=== PATIENT | female | born 1980 | race Caucasian/White ===

== ENCOUNTER 2017-01-13 16:55 | Inpatient (IN) | payer BC ==
[2017-01-13] MEDS ORDERED: Nalbuphine 20 MG/1 ML Amp IVPUSH PRN (17:10)
[2017-01-13] MEDS ORDERED: Sodium Chloride 0.9% 10 ML Syringe FLUSH PRN (17:10)
[2017-01-13] MEDS ORDERED: Lidocaine 1% 50 ML MDV INJECT ONE (17:10)
[2017-01-13] MEDS ORDERED: Ampicillin 2 GM in Sodium Chloride 0.9% 100 ML IV ONE (17:10)
[2017-01-13] MEDS ORDERED: Ondansetron 4 MG/2 ML SDV IVPUSH PRN (17:10)
[2017-01-13] MEDS: Lactated Ringers 1,000 ML IV SCH ×3 (17:15→19:26)
[2017-01-13] MEDS ORDERED: Ampicillin 1 GM Vial ONE ×2 (17:29→17:33)
[2017-01-13] MEDS ORDERED: Sodium Chloride 0.9% 200 ML ONE (17:29)
--- NOTE | 2017-01-13 17:33 | PCM.LDHP ---
L&D History of Present Illness - General Date of Service: 01/13/17 Admit Problem/Dx: Patient Status Order with Admit Dx/Problem 01/13/17 17:11 Patient Status [ADT] Routine Admission Diagnosis/Problem Admission Diagnosis/Problem Normal 01/13/17 17:22 40-1/7 week intrauterine , active labor, progression of cervical dilation Source of Information: Patient History Limitations: Reports: No Limitations - History of Present Illness Introduction:: Juliet is a 36-year-old 3 para 2002 white female is admitted on the afternoon of 01/13/2017 in active labor. She has changed her cervix from 2 cm, 80 % effaced, soft, -3 and mid position to 5 cm, her percent effaced, bulging bag of almaguer, anterior, very soft, vertex presentation. She is alexys approximately every 3 minutes. She is uncomfortable and desiring epidural. 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 Patient is a 3 para 2001. Patient had an unknown last menstrual period and was dated with an ultrasound done early in the . Follow-up ultrasounds done on 07/12/2016, 08/27/2016 and 12/12/2016 all agreed with the initial ultrasound. Her course is been relatively unremarkable. She declined genetic testing. Her [place] depression screen on 09/12/2016 was 2 on a scale 30. Urine culture showed positive group B strep. She is O- and had RhoGAM administered on 10/12/2016. He initially had retention of urine early in the but this resolved as the uterus enlarged. It was felt to be due to an incarcerated uterus. She plans to nurse. She is accepting of an epidural in labor and delivery. Past obstetric history includes 2 vaginal deliveries: 1. 7 lbs. 3 oz. male infant born [birth year]2009 at 40 weeks gestational age after 24 hours of labor. She delivered and hitting her [place]. Child's name is Adela. Baby had paralysis of vocal cords-possibly genetic in origin 2. Female born 01/29/2013 at 40 weeks gestational age after 10 hours of labor. Vacuum extraction delivery done at [facility]. Child's name is Gabrielle. course: Patient was initially seen at 13-5/7 weeks. Ultrasound done early in the showed an ZOYA of 01/12/2017. She was seen on a regular basis. Weight gain was from first visit weight of 151-172.2 pounds for 21.2 pound weight gain. Her blood pressure was normal throughout the and her fundal height growth was appropriate. labs: Blood is O- with a negative antibody screen. Her first hemoglobin was 13.7. Platelets were 266,000 at that time. She is rubella immune. RPR is nonreactive. Initial urine culture was positive for group B strep. Hepatitis B surface antigen and HIV assays were both negative. Chlamydia and gonorrhea assays were both negative. Her second trimester labs included a hemoglobin which is normal at 12.5 g/dL and a platelet count of 223,000. Diabetic screening test was 86. She received Rh immunoglobulin on 10/12/2016. Allergies none Medications: 1. vitamins 1 daily 2. Calcium 500 mg tablets daily Past medical history: 1. Vaginal delivery 2 2. heart and lung infection after last delivery. Past surgical history: Finger surgery in 1996 Family history: Patient's father and sister have factor V Leiden mutation. Mother the baby was tested and is negative. No bleeding, blood clotting, anesthesia or asthma problems noted in the family. 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 is Lalo. She does not use any significant muscle alcohol, drugs or tobacco. Review of systems: Constitutional: Normal Skin: Negative Cardiovascular: No chest pain or exercise intolerance Lungs: No shortness of breath or infectious symptoms Breasts: Changes associated with only GI: No concerns : Changes associated with including increased fundal height Musculoskeletal: Minimal edema on occasion in the bilateral lower extremities Neurological: Negative Physical exam: In general patient is well-developed, well-nourished, pleasant female stated age in no acute distress. Vital signs normal on last evaluation clinic 01/09/2017 with blood pressure 106/ 58. Weight was 172.2 pounds. heart rate was 124. Weight at time of first visit was 151. Height is 5 feet 8 inches. Pre BMI was 22. Skin is warm dry without lesions. HEENT, neck and back within normal limits Lungs are clear with good breath sounds in all lung de jesus. Cardiovascular exam shows regular rate and rhythm without murmurs. Breasts are not evaluated having been evaluated at first visit was found to be normal. Abdomen is protuberant secondary to with fundal height of 39 cm. Baby in vertex presentation by Xavier maneuvers. Cervix is dilated 5 cm, 100% effaced, -2 station, very soft, bulging bag of almaguer, anterior. Baby is in a vertex presentation Extremities neurological exam are grossly within normal limits. - Related Data Allergies/Adverse Reactions: Allergies Allergy/AdvReac Type Severity Reaction Status Date / Time No Known Allergies Allergy Verified 07/11/16 05:57 Home Medications: Home Meds Vit No.130/Iron/FA [ Vitamins] 1 each PO DAILY 02/01/15 [ History] Docusate Sodium [Colace] 50 mg PO BID PRN 02/09/15 [History] Ibuprofen 400 mg PO Q6HR PRN 02/09/15 [History] Acetaminophen [Tylenol] 650 mg PO Q6H PRN #0 tablet 02/10/15 [Rx] Acetaminophen/oxyCODONE [Percocet 325-5 MG] 2 tab PO Q6H PRN #0 tablet 02/10/15 [Rx] Azithromycin [Zithromax] 500 mg IV Q24H adv 02/10/15 [Rx] Cefepime [Maxipime in D5W 2 GM/50 ML] 2 gm IV Q8H bag 02/10/15 [Rx] Enoxaparin [Lovenox] 40 mg SUBCUT DAILY syringe 02/10/15 [Rx] Past Medical History - Past Health History Medical/Surgical History: Denies Medical/Surgical History 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: Reports: Other OB/BYN History: x2 - Past Surgical History Musculoskeletal Surgical History: Reports: Other (See Below) Social & Family History - Family History Family Medical History: Noncontributory - Tobacco Use Smoking Status *Q: Never Smoker Second Hand Smoke Exposure: No - Recreational Drug Use Recreational Drug Use: No - Living Situation & Occupation Living situation: Reports: , with Spouse, with Family Occupation: Unemployed H&P Review of Systems - Review of Systems: Review Of Systems: See Below L&D Exam - Exam Exam: See Below - Vital Signs Weight: 65.771 kg Problem List Initiated/Reviewed/Updated: Yes Orders Last 24hrs: Active Orders 24 hr Category Date Time Status Patient Status [ADT] Routine ADT 01/13/17 17:11 Ordered Activity as Tolerated [RC] PFP Care 01/13/17 17:10 Ordered Communication Order [RC] ASDIRECTED Care 01/13/17 17:10 Ordered Heart Tones [RC] ASDIRECTED Care 01/13/17 17:11 Ordered Notify Provider [RC] PFP Care 01/13/17 17:10 Ordered Notify Provider [RC] PRN Care 01/13/17 17:10 Ordered Peripheral IV Care [RC] . DIRECTED Care 01/13/17 17:11 Ordered Pump Management, Intrathecal [RC] ASDIRECTED Care 01/13/17 17:12 Ordered Vital Signs [RC] PER UNIT ROUTINE Care 01/13/17 17:10 Ordered Regular Diet [DIET] Diet 01/13/17 Dinner Ordered CBC WITH AUTO DIFF [HEME] Stat Lab 01/13/17 17:10 Ordered Ampicillin 1 gm Med 01/13/17 17:15 Ordered Sodium Chloride 0.9% [Normal Saline] 100 ml IV Q4H Ampicillin 2 gm Med 01/13/17 17:10 Ordered Sodium Chloride 0.9% [Normal Saline] 100 ml IV ONETIME Lactated Ringers [Ringers, Lactated] 1,000 ml Med 01/13/17 17:15 Ordered IV ASDIRECTED Lidocaine 1% [Xylocaine 1%] Med 01/13/17 17:10 Once 10 ml INJECT ONETIME ONE Nalbuphine [Nubain] Med 01/13/17 17:10 Ordered 10 mg IVPUSH Q2H PRN Ondansetron [Zofran] Med 01/13/17 17:10 Ordered 4 mg IVPUSH Q4H PRN Sodium Chloride 0.9% [Saline Flush] Med 01/13/17 17:10 Ordered 10 ml FLUSH ASDIRECTED PRN Electronic Heart Tones Ext w TOCO [WOMSER] Oth 01/13/17 17:10 Ordered Routine Electronic Heart Tones Internal [WOMSER] Per Unit Oth 01/13/17 17:10 Ordered Routine Peripheral IV Insertion Adult [OM.PC] Routine Oth 01/13/17 17:10 Ordered Resuscitation Status Routine Resus Stat 01/13/17 17:10 Ordered Medication Orders Ampicillin Sodium 2 gm/ Sodium (Chloride) 100 mls @ 200 mls/hr IV ONETIME ONE Stop: 01/13/17 17:39 Ampicillin Sodium 1 gm/ Sodium (Chloride) 100 mls @ 200 mls/hr IV Q4H THEA Lactated Ringer's (Ringers, Lactated) 1,000 mls @ 100 mls/hr IV ASDIRECTED [facility] Lidocaine HCl (Xylocaine 1%) 10 ml INJECT ONETIME ONE Stop: 01/13/17 17:11 Nalbuphine HCl (Nubain) 10 mg IVPUSH Q2H PRN PRN Reason: Pain (moderate 4-6) Ondansetron HCl (Zofran) 4 mg IVPUSH Q4H PRN PRN Reason: Nausea/Vomiting Sodium Chloride (Saline Flush) 10 ml FLUSH ASDIRECTED PRN PRN Reason: Keep Vein Open Assessment/Plan Comment:: Assessment: 1. 40-7 week intrauterine , active labor, advanced cervical dilation 2. Reassuring heart tones 3. Group B strep positive on initial urine culture -candidate for at biotic prophylaxis with ampicillin 4. Patient plans to nurse 5. Patient is accepting of epidural for analgesia in labor 6. O- blood, we will evaluate her blood to see whether she is an Rh immunoglobulin candidate 7. History of bilateral vocal cord paralysis and first baby-cerner noted thus far during this with this child. plan: 1. in the normal spontaneous vaginal delivery 2. epidural when necessary 3. cbc 4. ampicillin prophylaxis in labor for group b strep positive status
[2017-01-13] MEDS ORDERED: Sodium Chloride 0.9% 100 ML ONE (17:36)
[2017-01-13] MEDS ORDERED: diphenhydrAMINE 50 MG/ML SDV IVPUSH PRN (17:59)
[2017-01-13] MEDS ORDERED: ePHEDrine 50 MG/ML SDV IVPUSH PRN (17:59)
[2017-01-13] MEDS ORDERED: fentaNYL 100 MCG/2 ML SDV EPIDUR PRN (17:59)
[2017-01-13] MEDS ORDERED: Bupivacaine/fentaNYL/NS 100 ML Bag EPIDUR SCH (18:00)
--- NOTE | 2017-01-13 18:20 | PCM.PREANE ---
Preanesthetic Assessment - Anesthesia/Transfusion/Family Hx Anesthesia History: Prior Anesthesia Without Reaction Family History of Anesthesia Reaction: No Transfusion History: No Prior Transfusion(s) - Review of Systems General: No Symptoms Pulmonary: No Symptoms Cardiovascular: No Symptoms Gastrointestinal: No Symptoms Neurological: No Symptoms Other: Reports: None - Physical Assessment Pulse: 84 O2 Sat by Pulse Oximetry: 95 Respiratory Rate: 18 Blood Pressure: 103/64 Temperature: 36.6 C Height: 1.73 m Weight: 65.771 kg ASA Class: 2 Mental Status: Alert & Oriented x3 Airway Class: Mallampati = 1 Dentition: Reports: Normal Dentition Thyro-Mental Finger Breadths: 3 Mouth Opening Finger Breadths: 3 ROM/Head Extension: Full Lungs: Clear to Auscultation, Normal Respiratory Effort Cardiovascular: Regular Rate, Regular Rhythm - Lab Values: Laboratory Last Values WBC 10.77 K/mm3 (3.98-10.04) H 01/13/17 17:25 RBC 4.23 M/mm3 (3.98-5.22) 01/13/17 17:25 Hgb 13.3 gm/L (11.2-15.7) 01/13/17 17:25 Hct 38.3 % (34.1-44.9) 01/13/17 17:25 MCV 90.5 fl (79.4-94.8) 01/13/17 17:25 MCH 31.4 pg (25.6-32.2) 01/13/17 17:25 MCHC 34.7 g/dl (32.2-35.5) 01/13/17 17:25 RDW Std Deviation 43.7 fL (36.4-46.3) 01/13/17 17:25 Plt Count 225 K/mm3 (182-369) 01/13/17 17:25 MPV 9.8 fl (9.4-12.3) 01/13/17 17:25 Neut % (Auto) 77.5 % (34.0-71.1) H 01/13/17 17:25 Lymph % (Auto) 10.4 % (19.3-51.7) L 01/13/17 17:25 [place] % (Auto) 11.0 % (4.7-12.5) 01/13/17 17:25 Eos % (Auto) 0.5 (0.7-5.8) L 01/13/17 17:25 Baso % (Auto) 0.1 % (0.1-1.2) 01/13/17 17:25 Neut # (Auto) 8.36 K/mm3 (1.56-6.13) H 01/13/17 17:25 Lymph # (Auto) 1.12 K/mm3 (1.18-3.74) L 01/13/17 17:25 [place] # (Auto) 1.18 K/mm3 (0.24-0.36) H 01/13/17 17:25 Eos # (Auto) 0.05 K/mm3 (0.04-0.36) 01/13/17 17:25 Baso # (Auto) 0.01 K/mm3 (0.01-0.08) 01/13/17 17:25 - Allergies Allergies/Adverse Reactions: Allergies Allergy/AdvReac Type Severity Reaction Status Date / Time No Known Allergies Allergy Verified 07/11/16 05:57 - Anesthesia Plan Pre-Op Medication Ordered: None - Acknowledgements Anesthesia Type Planned: Epidural Pt an Appropriate Candidate for the Planned Anesthesia: Yes Alternatives and Risks of Anesthesia Discussed w Pt/Guardian: Yes Pt/Guardian Understands and Agrees with Anesthesia Plan: Yes PreAnesthesia Questionnaire - Past Health History Medical/Surgical History: Denies Medical/Surgical History Gastrointestinal History: Reports: [employer] History: Reports: Other OB/BYN History: x2 - Past Surgical History Musculoskeletal Surgical History: Reports: Other (See Below) - SUBSTANCE USE Smoking Status *Q: Never Smoker Second Hand Smoke Exposure: No Recreational Drug Use History: No - HOME MEDS Home Medications: Home Meds Vit No.130/Iron/FA [ Vitamins] 1 each PO DAILY 02/01/15 [ History] Docusate Sodium [Colace] 50 mg PO BID PRN 02/09/15 [History] Ibuprofen 400 mg PO Q6HR PRN 02/09/15 [History] Acetaminophen [Tylenol] 650 mg PO Q6H PRN #0 tablet 02/10/15 [Rx] Acetaminophen/oxyCODONE [Percocet 325-5 MG] 2 tab PO Q6H PRN #0 tablet 02/10/15 [Rx] Azithromycin [Zithromax] 500 mg IV Q24H adv 02/10/15 [Rx] Cefepime [Maxipime in D5W 2 GM/50 ML] 2 gm IV Q8H bag 02/10/15 [Rx] Enoxaparin [Lovenox] 40 mg SUBCUT DAILY syringe 02/10/15 [Rx] - CURRENT (IN HOUSE) MEDS Current Meds: Current Medications Diphenhydramine HCl (Benadryl) 25 mg IVPUSH Q6H PRN PRN Reason: Itching Ephedrine Sulfate (Ephedrine Sulfate) 5 mg IVPUSH ASDIRECTED PRN PRN Reason: HYPOTENTSION Fentanyl (Sublimaze) 100 mcg EPIDUR Q3H PRN PRN Reason: PAIN Last Admin: 01/13/17 18:07 Dose: 100 mcg Fentanyl/Bupivacaine HCl (Fentanyl/Bupivacaine/Ns 2 Mcg-0.125% 100 Ml) 100 ml EPIDUR ASDIRECTED THEA Last Admin: 01/13/17 18:07 Dose: 100 ml Ampicillin Sodium 1 gm/ Sodium (Chloride) 100 mls @ 200 mls/hr IV Q4H [facility] Lactated Ringer's (Ringers, Lactated) 1,000 mls @ 100 mls/hr IV ASDIRECTED [facility] Last Admin: 01/13/17 17:53 Dose: 125 mls/hr Nalbuphine HCl (Nubain) 10 mg IVPUSH Q2H PRN PRN Reason: Pain (moderate 4-6) Ondansetron HCl (Zofran) 4 mg IVPUSH Q4H PRN PRN Reason: Nausea/Vomiting Sodium Chloride (Saline Flush) 10 ml FLUSH ASDIRECTED PRN PRN Reason: Keep Vein Open Discontinued Medications Ampicillin Sodium (Ampicillin) Confirm Administered Dose 2 gm .ROUTE .STK-MED ONE Stop: 01/13/17 17:30 Last Admin: 01/13/17 17:46 Dose: 2 gm Ampicillin Sodium (Ampicillin) Confirm Administered Dose 2 gm .ROUTE .STK-MED ONE Stop: 01/13/17 17:34 Last Admin: 01/13/17 17:52 Dose: Not Given Ampicillin Sodium 2 gm/ Sodium (Chloride) 100 mls @ 200 mls/hr IV ONETIME ONE Stop: 01/13/17 17:39 Last Admin: 01/13/17 17:48 Dose: Not Given Sodium Chloride (Normal Saline) Confirm Administered Dose 200 mls @ as directed .ROUTE .STK-MED ONE Stop: 01/13/17 17:30 Last Admin: 01/13/17 17:49 Dose: Not Given Sodium Chloride (Normal Saline) Confirm Administered Dose 100 mls @ as directed .ROUTE .STK-MED ONE Stop: 01/13/17 17:37 Last Admin: 01/13/17 17:48 Dose: 100 ml Lidocaine HCl (Xylocaine 1%) 10 ml INJECT ONETIME ONE Stop: 01/13/17 17:11
[2017-01-13] MEDS ORDERED: Oxytocin/Lactated Ringers 10 UNIT/1,000 ML BAG IV ONE (20:03)
[2017-01-13] MEDS ORDERED: Oxytocin/Lactated Ringers 10 UNIT/1,000 ML BAG IV SCH (20:15)
--- NOTE | 2017-01-13 20:32 | PCM.SN ---
- Free Text/Narrative Note: Juliet is a 36-year-old 3 now para 3003 white female who was admitted earlier today in active labor. She progressed relatively rapidly from 4 cm to complete. The course of 2 contractions the patient delivered the baby at 2002 hours. The Baby weighed 3480 g (7 pounds 10.8 ounces) and delivered in the left occiput anterior position, over an intact perineum. There was however a periclitoral laceration with the venous bleeder that required a single figure-of -eight 3-0 Monocryl suture for hemostasis. the baby was placed on mom's abdomen. Nose and mouth were bulb suctioned. Cord was clamped 2 cut by the father. The cord was obtained. The umbilical cord had 3 vessels. Baby was 19.5 inches in length and had a 14 inch head. The placenta delivered at 2010 hrs. It appeared intact and complete. It was discarded per patient desire. Estimated blood loss was 100 mL. Patient plans to nurse. Condition: Good
[2017-01-13] MEDS ORDERED: Witch Hazel Medicated Pads 100/Jar TOP PRN (20:50)
[2017-01-13] MEDS ORDERED: Acetaminophen 325 MG Tab PO PRN (20:50)
[2017-01-13] MEDS ORDERED: Benzocaine/Menthol 20%-0.5% Spray 56 GM Canister TOP PRN (20:50)
[2017-01-13] MEDS ORDERED: Lanolin 100% Cream 7 GM Tube TOP PRN (20:50)
[2017-01-13] MEDS ORDERED: Ampicillin 1 GM in Sodium Chloride 0.9% 100 ML IV SCH (21:00)
[2017-01-14] MEDS: Ibuprofen 600 MG Tab PO PRN ×5 (02:03→21:24)
[2017-01-14] MEDS: Docusate Sodium 100 MG Cap PO PRN ×2 (06:48→22:10)
--- NOTE | 2017-01-14 07:46 | PCM48HPAN ---
Post Anesthesia Note - EVALUATION WITHIN 48HRS OF ANESTHETIC Vital Signs in Normal Range: Yes Patient Participated in Evaluation: Yes Respiratory Function Stable: Yes Airway Patent: Yes Cardiovascular Function Stable: Yes Hydration Status Stable: Yes Pain Control Satisfactory: Yes Nausea and Vomiting Control Satisfactory: Yes Mental Status Recovered: Yes
[2017-01-14] MEDS ORDERED: Ondansetron 4 MG/2 ML SDV IVPUSH PRN (07:50)
[2017-01-14] MEDS ORDERED: ePHEDrine 50 MG/ML SDV IVPUSH PRN (07:50)
[2017-01-14] MEDS ORDERED: fentaNYL 100 MCG/2 ML SDV EPIDUR PRN (07:50)
[2017-01-14] MEDS ORDERED: Bupivacaine/fentaNYL/NS 100 ML Bag EPIDUR SCH (08:00)
--- NOTE | 2017-01-14 08:18 | PCM.SN ---
- Free Text/Narrative Note: Patient is doing well this same. Minimal lochia. Pain is under good control. She is ambulating well. Epidural sworn off completely. She is nursing without problems and is voided without concerns. Patient is afebrile. Vital signs stable. Abdomen is flat, soft, nontender with uterus at umbilicus. Legs nontender. Assessment/plan: Doing well . Nursing going well. Recommend routine cares.
[2017-01-14] MEDS ORDERED: Bupivacaine 0.25% 10 ML SDV ONE (22:22)
[2017-01-15] MEDS: Ibuprofen 600 MG Tab PO PRN ×2 (03:32→09:04)
--- NOTE | 2017-01-15 07:50 | PCM.DCSUM1 ---
Discharge Summary - Hospital Course Free Text/Narrative:: Juliet is a 36-year-old 3 now para 3003 white female who was admitted on in active labor. She progressed relatively rapidly from 4 cm to complete. The course of 2 contractions the patient delivered the baby at 2002 hours. The Baby weighed 3480 g (7 pounds 10.8 ounces) and delivered in the left occiput anterior position, over an intact perineum. There was however a periclitoral laceration with the venous bleeder that required a single figure-of -eight 3-0 Monocryl suture for hemostasis. the baby was placed on mom's abdomen. Nose and mouth were bulb suctioned. Cord was clamped 2 cut by the father. The cord was obtained. The umbilical cord had 3 vessels. Baby was 19.5 inches in length and had a 14 inch head. The placenta delivered at 2010 hrs. It appeared intact and complete. It was discarded per patient desire. Estimated blood loss was 100 mL. Patient plans to nurse. patient is doing well. She is nursing without problems, ambulating well and has minimal lochia. Pain is under good control. Patient desires to go home. - Discharge Data Discharge Date: 01/15/17 Discharge Disposition: Home, Self-Care 01 Condition: Good - Patient Instructions Diet: Regular Diet as Tolerated (Diet increase of calcium and calories as recommended) Activity: As Tolerated (No intercourse tampons until bleeding resolves) Driving: May Drive Today Showering/Bathing: May Shower (May take a bath) Notify Provider of: Fever, Increased Pain, Swelling and Redness, Nausea and/or Vomiting - Discharge Plan Home Medications: Home Meds Vit No.130/Iron/FA [ Tablet] 1 each PO DAILY 02/01/15 [History] Famotidine [Pepcid] 20 mg PO ASDIRECTED PRN 01/13/17 [History] Ibuprofen [IJD: Ibuprofen] 600 mg PO Q4H PRN #30 tablet 01/15/17 [Rx] Referrals: Be Farias MD [Primary Care Provider] - (Return to clinic-Dr. Farias[address] [place] [address]. [facility].) - Discharge Summary/Plan Comment DC Time >30 min.: No Discharge Summary/Plan Comment: Discharge instructions: 1. Discharge home 2. Regular, high fiber, high calcium, nursing diet 3. Routine precautions given concern increased pain, bleeding, temperature, signs/symptoms of DVT/PE. 4. Medications per home medications printed, discussed this and given to the patient. 5. Return to clinic-Dr. Farias-[facility]. Diagnosis: 40-2/7 week intrauterine -delivered Condition: Good - Patient Data Vitals - Most Recent: Last Vital Signs Temp 36.8 C 01/15/17 03:26 Pulse 80 01/15/17 03:26 Resp 16 01/15/17 03:26 BP 101/57 L 01/15/17 03:26 Pulse Ox 99 01/15/17 03:26 Weight - Most Recent: 78.925 kg I&O - Last 24 hours: Intake & Output 01/14/17 01/15/17 01/15/17 22:59 06:59 14:59 Intake Total 120 Balance 120 Lab Results - Last 24 hrs: Laboratory Results - last 24 hr 01/13/17 01/14/17 Range/Units 21:19 05:45 POC Glucose Cancelled Blood Type O NEGATIVE Gel Antibody Screen Positive Screen 0 ros/5 flds - neg RhIG Candidate? Yes Rhogam Indicated Yes, baby rh pos H Med Orders - Current: Current Medications Acetaminophen (Tylenol) 650 mg PO Q4H PRN PRN Reason: mild pain or fever Benzocaine/Menthol (Dermoplast Pain Relief [place]) 0 gm TOP ASDIRECTED PRN PRN Reason: Perineal Comfort Measure Last Admin: 01/14/17 01:55 Dose: 1 applic Docusate Sodium (Colace) 100 mg PO BID PRN PRN Reason: Constipation Last Admin: 01/14/17 22:10 Dose: 100 mg Emollient Ointment (Lansinoh Hpa) 0 gm TOP ASDIRECTED PRN PRN Reason: Sore Nipples Ibuprofen (Motrin) 600 mg PO Q4H PRN PRN Reason: Mild pain or fever Last Admin: 01/15/17 03:32 Dose: 600 mg Witch Gabrielle (Tucks) 1 pad TOP ASDIRECTED PRN PRN Reason: Hemorrhoid pain Last Admin: 01/14/17 01:54 Dose: 1 applic Discontinued Medications Ampicillin Sodium (Ampicillin) Confirm Administered Dose 2 gm .ROUTE .STK-MED ONE Stop: 01/13/17 17:30 Last Admin: 01/13/17 17:46 Dose: 2 gm Ampicillin Sodium (Ampicillin) Confirm Administered [facility]: 01/13/17 17:34 Last Admin: 01/13/17 17:52 Dose: Not Given Bupivacaine HCl (Sensorcaine-Mpf 0.25%) 10 ml .ROUTE .[facility] ONE Stop: 01/14/17 22:23 Diphenhydramine HCl (Benadryl) 25 mg IVPUSH Q6H PRN PRN Reason: Itching Ephedrine Sulfate (Ephedrine Sulfate) 5 mg IVPUSH ASDIRECTED PRN PRN Reason: HYPOTENTSION Ephedrine Sulfate (Ephedrine Sulfate) 5 mg IVPUSH ASDIRECTED PRN PRN Reason: Hypotension Fentanyl (Sublimaze) 100 mcg EPIDUR Q3H PRN PRN Reason: PAIN Last Admin: 01/13/17 18:07 Dose: 100 mcg Fentanyl (Sublimaze) 100 mcg EPIDUR Q3H PRN PRN Reason: Pain Fentanyl/Bupivacaine HCl (Fentanyl/Bupivacaine/Ns 2 Mcg-0.125% 100 Ml) 100 ml EPIDUR ASDIRECTED COUNT INCLUDES THE [facility] Last Admin: 01/13/17 18:07 Dose: 100 ml Fentanyl/Bupivacaine HCl (Fentanyl/Bupivacaine/Ns 2 Mcg-0.125% 100 Ml) 100 ml EPIDUR ASDIRECTED COUNT INCLUDES THE [facility] Ampicillin Sodium 2 gm/ Sodium (Chloride) 100 mls @ 200 mls/hr IV ONETIME ONE Stop: 01/13/17 17:39 Last Admin: 01/13/17 17:48 Dose: Not Given Ampicillin Sodium 1 gm/ Sodium (Chloride) 100 mls @ 200 mls/hr IV Q4H COUNT INCLUDES THE [facility] Lactated Ringer's (Ringers, Lactated) 1,000 mls @ 100 mls/hr IV ASDIRECTED COUNT INCLUDES THE [facility] Last Admin: 01/13/17 19:26 Dose: 125 mls/hr Sodium Chloride (Normal Saline) Confirm Administered Dose 200 mls @ as directed .ROUTE .[facility]-MED ONE Stop: 01/13/17 17:30 Last Admin: 01/13/17 17:49 Dose: Not Given Sodium Chloride (Normal Saline) Confirm Administered Dose 100 mls @ as directed .ROUTE .[facility]-MED ONE Stop: 01/13/17 17:37 Last Admin: 01/13/17 17:48 Dose: 100 ml Oxytocin/Lactated Ringer's (Pitocin In Lr 10 Units/1,000 Ml) Confirm Administered Dose 10 unit in 1,000 mls @ as directed IV .STK-MED ONE Stop: 01/13/17 20:04 Last Admin: 01/13/17 20:49 Dose: Not Given Oxytocin/Lactated Ringer's (Pitocin In Lr 10 Units/1,000 Ml) 10 unit in 1,000 mls @ 3,000 mls/hr IV TITRATE THEA; 500 MUNITS/MIN PRN Reason: Protocol Last Titration: 01/13/17 20:49 Dose: 250 mls/hr Lidocaine HCl (Xylocaine 1%) 10 ml INJECT ONETIME ONE Stop: 01/13/17 17:11 Last Admin: 01/13/17 20:49 Dose: Not Given Nalbuphine HCl (Nubain) 10 mg IVPUSH Q2H PRN PRN Reason: Pain (moderate 4-6) Ondansetron HCl (Zofran) 4 mg IVPUSH Q4H PRN PRN Reason: Nausea/Vomiting Ondansetron HCl (Zofran) 4 mg IVPUSH ONETIME PRN PRN Reason: Nausea/Vomiting Sodium Chloride (Saline Flush) 10 ml FLUSH ASDIRECTED PRN PRN Reason: Keep Vein Open *Q Meaningful Use (DIS) - VTE *Q VTE Criteria *Q: - Stroke *Q Stroke Criteria *Q: - AMI *Q AMI Criteria *Q:
[2017-01-15 14:38] VITALS: BP 103/60
== END 2017-01-15 18:15 | disposition home or self-care (01) | DRG 560 ==
LOC: JD.OBCHECK 16:55 → JD.OB 16:55 → JD.OBCHECK 17:11 → OBSVTOIN 20:02 → JD.OB 20:02
PROVIDERS: ADMIT Obstetrics & Gynecology; ATTEND Obstetrics & Gynecology
PROC: 10E0XZZ Delivery of Products of Conception, External Approach (ICD-10-PCS; principal; 2017-01-13)
PROC: 0HQ9XZZ Repair Perineum Skin, External Approach (ICD-10-PCS; 2017-01-13)
DX: O70.0 First degree perineal laceration during delivery (principal); O98.82 Other maternal infectious and parasitic diseases complicating childbirth; B95.1 Streptococcus, group B, as the cause of diseases classified elsewhere; Z3A.40 40 weeks gestation of pregnancy; Z37.0 Single live birth
CPT/HCPCS: 36415; 82962; 85025; 85027; 85461; 86850; 86870; 86900; 86901; A9270-GY; J0290; J2590; J2790; J3010; J7030; J7120

== ENCOUNTER 2018-09-01 19:24 | Emergency (ER) | payer BC ==
[2018-09-01 19:44] VITALS: BP 111/71
[2018-09-01] MEDS ORDERED: Acetaminophen 325 MG Tab PO STA (20:45)
--- NOTE | 2018-09-01 20:55 | EDM.PDOC ---
<Maegan Marie - Last Filed: 09/01/18 21:59> ED HPI GENERAL MEDICAL PROBLEM - General Chief Complaint: General Stated Complaint: pain in neck and back 7 weeks preg sent by fords Time Seen by Provider: 09/01/18 20:01 Source of Information: Reports: Patient History Limitations: Reports: No Limitations - History of Present Illness INITIAL COMMENTS - FREE TEXT/NARRATIVE: 38-year-old female presents the emergency room chief complaints of anterior neck pain that radiates towards her chest and into her upper shoulder region. She reports the pain started 3 days ago. She states that the pain increases when she takes a deep breath. She also complains of headache intermittent ear pain low-grade fever at 99 5 and chills. She denies any shortness of breath she denies sore throat, and chest pain. 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 She reports she was diagnosed 3-1/2 years ago and had an MRI 6 months ago patient does see a provider at the [facility]. Onset Date: 08/29/18 Onset Time: 09:00 Duration: Getting Worse Location: Reports: Neck (anterior) Quality: Reports: Ache Severity: Mild Improves with: Reports: None Worsens with: Reports: Other (With taking deep breaths), Movement Associated Symptoms: Reports: Other (Reports it is hard to sleep the due to being uncomfortable.). Denies: Chest Pain, Weakness (Reports difficulty to take deep breaths) Treatments BOARDMARKER: Reports: Acetaminophen Generalized Pain Score (Numeric/FACES): 6 - Related Data Allergies Allergy/AdvReac Type Severity Reaction Status Date / Time No Known Allergies Allergy Verified 09/01/18 19:44 Home Meds: Home Meds Vit No.130/Iron/FA [ Tablet] 1 each PO DAILY 02/01/15 [History] Past Medical History - Past Health History Medical/Surgical History: Denies Medical/Surgical History HEENT History: Reports: Impaired Vision Other HEENT History: wears glasses Cardiovascular History: Reports: Other (See Below) Other Cardiovascular History: had reduced aortic output after last delivery, no cause ever found Gastrointestinal History: Reports: GERD Genitourinary History: Reports: Retention, Urinary Other Genitourinary History: 2 ER visits this year due to blocked urethra 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 Musculoskeletal History: Reports: None - Past Surgical History HEENT Surgical History: Reports: Oral Surgery Other HEENT Surgeries/Procedures: wisdom teeth extraction Cardiovascular Surgical History: Reports: None Social & Family History - Family History Family Medical History: Noncontributory - Tobacco Use Smoking Status *Q: Never Smoker - Caffeine Use Caffeine Use: Reports: Coffee - Recreational Drug Use Recreational Drug Use: No - Living Situation & Occupation Living situation: Reports: , with Spouse, with Family Occupation: Unemployed ED ROS GENERAL - Review of Systems Review Of Systems: See Below Constitutional: Reports: Fever, Chills HEENT: Reports: Ear Pain Respiratory: Reports: Other (Increased neck pain with inspiration.) Cardiovascular: Reports: Chest Pain Endocrine: Reports: No Symptoms GI/Abdominal: Denies: Abdominal Pain : Reports: Other (). Denies: Dysuria, Flank Pain Musculoskeletal: Reports: Neck Pain, Shoulder Pain, Muscle Pain Skin: Reports: No Symptoms Neurological: Reports: No Symptoms Psychiatric: Reports: No Symptoms Hematologic/Lymphatic: Reports: No Symptoms Immunologic: Reports: No Symptoms ED EXAM, GENERAL - Physical Exam Exam: See Below Exam Limited By: No Limitations General Appearance: Alert, WD/WN, No Apparent Distress Ears: Normal External Exam, Normal Canal, Hearing Grossly Normal, Normal TMs Nose: Normal Inspection, Normal Mucosa, No Blood Throat/Mouth: Normal Inspection, Normal Lips, Normal Teeth, Normal Gums, Normal Oropharynx, Normal Voice, No Airway Compromise Head: Atraumatic, Normocephalic Neck: Normal Inspection, Supple, Non-Tender, Full Range of Motion Respiratory/Chest: No Respiratory Distress, Lungs Clear, Normal Breath Sounds, No Accessory Muscle Use, Chest Non-Tender Cardiovascular: Normal Peripheral Pulses, Regular Rate, Rhythm, No Edema, No Gallop, No JVD, No Murmur, No Rub Back Exam: Normal Inspection, Full Range of Motion Extremities: Normal Inspection, Normal Range of Motion, Non-Tender, No Pedal Edema, Normal Capillary Refill Neurological: Alert, Oriented, CN II-XII Intact, Normal Cognition, Normal Gait, Normal Reflexes, No Motor/Sensory Deficits Psychiatric: Normal Affect, Normal Mood Skin Exam: Warm, Dry, Intact, Normal Color, No Rash Lymphatic: No Adenopathy Course - Vital Signs Last Recorded V/S: Last Vital Signs Temp 98.7 F 09/01/18 19:42 Pulse 73 09/01/18 19:42 Resp 18 09/01/18 19:42 BP 111/71 09/01/18 19:42 Pulse Ox 100 09/01/18 19:42 - Orders/Labs/Meds Labs: Laboratory Tests 09/01/18 09/01/18 09/01/18 Range/Units 21:00 21:00 21:00 WBC 9.79 (3.98-10.04) K/mm3 RBC 4.04 (3.98-5.22) M/mm3 Hgb 12.4 (11.2-15.7) gm/L Hct 36.8 (34.1-44.9) % MCV 91.1 (79.4-94.8) fl MCH 30.7 (25.6-32.2) pg MCHC 33.7 (32.2-35.5) g/dl RDW Std Deviation 41.9 (36.4-46.3) fL Plt Count 249 (182-369) K/mm3 MPV 9.8 (9.4-12.3) fl Neut % (Auto) 72.0 H (34.0-71.1) % Lymph % (Auto) 15.1 L (19.3-51.7) % [place] % (Auto) 11.3 (4.7-12.5) % Eos % (Auto) 1.2 (0.7-5.8) Baso % (Auto) 0.2 (0.1-1.2) % Neut # (Auto) 7.04 H (1.56-6.13) K/mm3 Lymph # (Auto) 1.48 (1.18-3.74) K/mm3 [place] # (Auto) 1.11 H (0.24-0.36) K/mm3 Eos # (Auto) 0.12 (0.04-0.36) K/mm3 Baso # (Auto) 0.02 (0.01-0.08) K/mm3 TSH 3rd Generation 5.400 H (0.358-3.74) uIU/mL HCG, Qual Positive H (NEGATIVE) Meds: Medications Discontinued Medications Generic Name Dose Route Start Last Admin Trade Name Freq PRN Reason Stop Dose Admin Acetaminophen 650 mg 09/01/18 20:45 09/01/18 20:53 Tylenol PO 09/01/18 20:46 650 mg NOW STA Administration - Re-Assessments/Exams Free Text/Narrative Re-Assessment/Exam: 09/01/18 21:43 HCG is positive 09/01/18 21:59 WBC 9.79 H & H 12.4/36.8 TSH elevated 5.4. I will discharge home with instructions to follow up with her PCP in 2-3 days for further evaluation and treatment of hypothyroidism. I feel her neck pain is muscle strain. I do not think she has a PE because her oxygen level is 96% on room air, she is not tachycardic. Instructed to take Tylenol as needed for the pain, alternate ice and heat, consider massage. Instructed to return to the ER for any new or acute worsening symptoms. Departure - Departure Time of Disposition: 21:59 Disposition: Home, Self-Care 01 Condition: Good Clinical Impression: Neck strain Hypothyroidism Qualifiers: Hypothyroidism type: unspecified Qualified Code(s): E03.9 - Hypothyroidism, unspecified - Discharge Information *PRESCRIPTION DRUG MONITORING PROGRAM REVIEWED*: Not Applicable *COPY OF PRESCRIPTION DRUG MONITORING REPORT IN PATIENT SHANNAN: Not Applicable Instructions: Hypothyroidism, Muscle Strain, [id number], Cervical Sprain, [id number] Referrals: Janessa Johnson MD [Primary Care Provider] - Forms: ED Department Discharge Additional Instructions: you have been diagnosis with neck/muscle strain. Your blood studies indicate you have hypothyroidism. You should follow up with your PCP in 2-3 days for further evaluation. Return to the ER for any new or acute worsening symptoms. <Jorge Manrique - Last Filed: 09/02/18 19:59> Course - Re-Assessments/Exams Free Text/Narrative Re-Assessment/Exam: 09/02/18 19:58 Patient has been evaluated by FARRAH Ordaz. I have also interviewed and examined patient. I agree with hx, exam, treatment plan as documented.
== END 2018-09-01 22:10 | disposition home or self-care (01) ==
LOC: JD.ED 19:24
DX: O99.89 Other specified diseases and conditions complicating pregnancy, childbirth and the puerperium (principal); S16.1XXA Strain of muscle, fascia and tendon at neck level, initial encounter; O99.281 Endocrine, nutritional and metabolic diseases complicating pregnancy, first trimester; E03.9 Hypothyroidism, unspecified; Z3A.00 Weeks of gestation of pregnancy not specified; X58.XXXA Exposure to other specified factors, initial encounter
CPT/HCPCS: 36415; 84443; 84703; 85025; 87804; 99283; A9270; 99282

== ENCOUNTER 2019-04-26 21:22 | Inpatient (IN) | payer BC ==
[2019-04-26] MEDS ORDERED: Nalbuphine 10 MG/1 ML Vial IVPUSH PRN (21:50)
[2019-04-26] MEDS ORDERED: Sodium Chloride 0.9% 10 ML Syringe FLUSH PRN (21:50)
[2019-04-26] MEDS ORDERED: Ampicillin 2 GM in Sodium Chloride 0.9% 100 ML IV ONE (22:00)
[2019-04-26] MEDS ORDERED: Lactated Ringers 1,000 ML IV SCH (22:00)
[2019-04-26] MEDS ORDERED: Oxytocin/Lactated Ringers 10 UNIT/1,000 ML BAG IV SCH (22:00)
[2019-04-26] MEDS ORDERED: Lidocaine 1% 50 ML MDV ONE (23:04)
[2019-04-26] MEDS ORDERED: Lidocaine 1% 50 ML MDV INJECT ONE (23:05)
--- NOTE | 2019-04-26 23:39 | PCM.LDHP ---
L&D History of Present Illness - General Date of Service: 04/26/19 Admit Problem/Dx: Patient Status Order with Admit Dx/Problem 04/26/19 21:55 Patient Status [ADT] Routine Admission Diagnosis/Problem Admission Diagnosis/Problem 04/26/19 23:20 Juliet is a 39-year-old 4 now para 4004 white female who is admitted on the evening of 04/26/2019 at 40-2/7 weeks gestational age with an ZOYA of 2018 in active labor. Rapidly went from 4 cm upon admission to complete and delivered within approximately 2 hour time period. History of physical exam is done after the delivery. Source of Information: Patient History Limitations: Reports: No Limitations - History of Present Illness Introduction:: Juliet is a 39-year-old 4 now para 4004 white female who is admitted on the evening of 04/26/2019 at 40-2/7 weeks gestational age with an ZOYA of 2018 in active labor. Rapidly went from 4 cm upon admission to complete and delivered within approximately 2 hour time period. History of physical exam is done after the delivery. Patient had a natural labor. This per her design. If she rapidly went through labor alexys approximately every 3 minutes. Artificial rupture membranes resulted in clear amniotic fluid. She pushed 2 contractions and delivered a viable, ramos, male infant with Apgars of 9 and 9, weight 3020 g (6 pounds 10.5 ounces), a length of 20.0 inches in a occiput anterior position at 2258 hrs. on 04/26/2019. She had a periclitoral laceration which required 2 sutures. The area was anesthetized with lidocaine 1%5 mL total. 3-0 Monocryl was used for the repair. The placenta delivered intact and complete at 2302 hrs. It delivered in a Waite presentation, appeared intact and complete and was discarded per patient desire. IV Pitocin was started at 500 mL per hour to increase uterine tone and decreased likelihood of uterine bleeding. Estimated blood loss was 100 mL. Condition: Good. Patient plans to breast-feed. Patient's course was relatively unremarkable. ZOYA of 04/24/2019 was determined by an early ultrasound on 11 5/7 weeks gestational age. It was supported by 2 other ultrasounds done at 20-1/7 and 36-3/7 weeks. Her LMP of 1/ was relatively certain and she is not using any control at the time. Patient had menarche at approximately age [age] years, frequency of 30-32 days. Prior menses was 06/09/2018. Her previous pregnancies included the followin. Male born to a 2007 at 40 weeks gestational age7 lbs. 3 oz.24 hours laborhitting her [place]. Child's name is Adela 2. Female infant born 01[birth year]29/2013 at 40 weeks gestational age7 lbs. 10 oz.10.0 hours laborvacuum [facility] postpartumchild's name is Gabrielle 3. Male infant born 01/13/2017. 40-1/7 weeks gestational age7 lbs. 10 oz.6 hours of laborNSVDepidural useone and [facility]child's name is Maite Ahumada course started with first visit on 10/08/2018 at 11 weeks and 5 days. Ultrasound consistent with ZOYA of 04/24/2019. 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 This is managed conservatively but patient did have to be catheterized couple times. She had no problems after approximately 14-16 weeks. Patient's weight gain throughout the was from 146 pounds to 172 pounds for a 26 pound weight gain. Her vital signs were stable throughout the course and her fundal height growth was appropriate. Patient is group B strep positive. She declined genetic testing. EPDS score on 12/10/2018 was 4/ 30. She has O- blood and received RhoGAM in second trimester. Patient has seasonal allergies which she treated with [id number] antihistamine. She plans to breast-feed. Vision had her flu shot on 03/25/2019. Her T dap was given on 03/11/2019 and patient is rubella immune. Laboratory testing in showed her blood to be O- with a negative antibody screen. First prenatals hemoglobin is 13.3 g/dL and platelets are 257, 000. She is rubella immune. RPR is nonreactive. Culture showed group B strep presence. Hepatitis B surface antigen and HIV assays are both negative. Chlamydia and gonorrhea are both negative. TSH done on 10/08/2018 was negative. Second trimester labs showed hemoglobin 11.7 and platelets of 242,100 GTT was negative at 104. Patient had negative antibody screen and Rh immunoglobulin was given at that time. Repeat RPR on 01/27/2019. Group B strep screen was positive in urine was not repeated via vaginal/rectal culture. Patient has been tested for factor V Leiden mutation and was found to be negative. She is also MTHFR negative. Allergies: Noneonly seasonal allergies Medications: 1. Flonase allergy when necessary 2. vitamins daily 3. Claritin 10 mg by mouth daily when necessary Omeprazole 20 mg by mouth totally release when necessary 5. Ferrous sulfate 325 mg by mouth daily. Past medical history: 1. Normal spontaneous vaginal delivery 2, back extraction vaginal delivery 1. 2. Seasonal allergies Past surgical history: 1. Finger surgery in 1996. Family history: Mother is alive and with high cholesterol. Father is alive with high blood pressure and high cholesterol and factor V Leiden mutation. Sr. alive positive factor V Leiden mutationheterozygous. Maternal grandmother is alive but has had a stroke and breast cancer. Maternal grandfather is alive and well at age 85. Paternal grandmother is secondary to stroke. Paternal grandfather is secondary to heart disease. Family history of MTHFR. Social history: Patient is . is Lalo. She is a college graduate. 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 They live in [place], [place]. She does not use any alcohol, drugs or tobacco. Review of systems: Upon admission patient was in moderate discomfort secondary to contractions. She reported good activity. Skin: Negative Lungs: No infectious symptoms or shortness of breath Cardiovascular: No chest pain or exercise intolerance Breasts: Changes consistent with . GI: Negative : Changes associated with . Musculoskeletal: Negative Neurological: Negative In general the patient is well-developed, well-nourished, pleasant female of stated age in moderate distress secondary to labor. On last evaluation in clinic on 04/23/2019 weight was 172 pounds. Blood pressure 110/68. Pregravid weight was 146 pounds. Height is 5 feet 8 inches. Weight body mass index 21.3. Skin is warm dry without lesions. HEENT, neck and back within normal limits. Lungs are clear with good breath sounds in all lung de jesus. Cardiovascular exam shows regular and rhythm without murmurs. Breasts exam is deferred at this time having been done at first visit found to be normal. Abdomen is gravid with last fundal height at 38 cm. Baby in vertex presentation. Genital per digital exam was found before centers upon admission. She rapidly progressed to 8 cm. My initial evaluation showed anterior rim. Bag almaguer bulging. One rupture revealed clear amniotic fluid. Extremities and neurological exam are grossly within normal limits. - Related Data Allergies/Adverse Reactions: Allergies Allergy/AdvReac Type Severity Reaction Status Date / Time No Known Allergies Allergy Verified 04/26/19 22:26 Home Medications: Home Meds Vit No.130/Iron/FA [ Tablet] 1 each PO DAILY 02/01/15 [History] Omeprazole 20 mg PO 04/26/19 [History] Past Medical History - Past Health History Medical/Surgical History: Denies Medical/Surgical History HEENT History: Reports: Impaired Vision Other HEENT History: wears glasses Cardiovascular History: Reports: Other (See Below) Other Cardiovascular History: had reduced aortic output after last delivery, no cause ever found Gastrointestinal History: Reports: GERD Genitourinary History: Reports: Retention, Urinary Other Genitourinary History: 2 ER visits this year due to blocked urethra 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 OB/BYN History: x2 Musculoskeletal History: Reports: None - Past Surgical History HEENT Surgical History: Reports: Oral Surgery Other HEENT Surgeries/Procedures: wisdom teeth extraction Cardiovascular Surgical History: Reports: None Social & Family History - Family History Family Medical History: Noncontributory - Caffeine Use Caffeine Use: Reports: Coffee - Living Situation & Occupation Living situation: Reports: , with Spouse, with Family Occupation: Unemployed H&P Review of Systems - Review of Systems: Review Of Systems: See Below L&D Exam - Exam Exam: See Below - Vital Signs Vital Signs: Last Vital Signs Temp 36.8 C 04/26/19 21:55 Pulse 69 04/26/19 21:55 Resp 16 04/26/19 21:55 BP 112/67 04/26/19 21:55 Pulse Ox 100 04/26/19 21:55 Weight: 78.199 kg - Patient Data Lab Results Last 24 hrs: Laboratory Results - last 24 hr 04/26/19 04/26/19 Range/Units 21:55 21:55 WBC 11.68 H (3.98-10.04) K/mm3 RBC 4.45 (3.98-5.22) M/mm3 Hgb 13.1 (11.2-15.7) gm/dl Hct 39.0 (34.1-44.9) % MCV 87.6 D (79.4-94.8) fl MCH 29.4 (25.6-32.2) pg MCHC 33.6 (32.2-35.5) g/dl RDW Std Deviation 42.7 (36.4-46.3) fL Plt Count 265 (182-369) K/mm3 MPV 9.9 (9.4-12.3) fl Neut % (Auto) 73.4 H (34.0-71.1) % Lymph % (Auto) 15.1 L (19.3-51.7) % [place] % (Auto) 10.3 (4.7-12.5) % Eos % (Auto) 0.6 L (0.7-5.8) Baso % (Auto) 0.2 (0.1-1.2) % Neut # (Auto) 8.58 H (1.56-6.13) K/mm3 Lymph # (Auto) 1.76 (1.18-3.74) K/mm3 [place] # (Auto) 1.20 H (0.24-0.36) K/mm3 Eos # (Auto) 0.07 (0.04-0.36) K/mm3 Baso # (Auto) 0.02 (0.01-0.08) K/mm3 Blood Type O NEGATIVE Gel Antibody Screen Positive Result Diagrams: 04/26/19 21:55 Problem List Initiated/Reviewed/Updated: Yes Orders Last 24hrs: Active Orders 24 hr Category Date Time Status Patient Status Manage Transfer [TRANSFER] Routine ADT 04/26/19 23:18 Ordered Patient Status [ADT] Routine ADT 04/26/19 21:55 Active Activity as Tolerated [RC] PFP Care 04/26/19 21:55 Active Communication Order [RC] ASDIRECTED Care 04/26/19 21:55 Active Heart Tones [RC] ASDIRECTED Care 04/26/19 21:56 Active Non Stress Test [RC] PER UNIT ROUTINE Care 04/26/19 21:55 Active Notify Provider [RC] PFP Care 04/26/19 21:55 Active Notify Provider [RC] PRN Care 04/26/19 21:55 Active Peripheral IV Care [RC] . DIRECTED Care 04/26/19 21:56 Active Vital Signs [RC] PER UNIT ROUTINE Care 04/26/19 21:55 Active ANTIBODY IDENTIFICATION [BBK] Stat Lab 04/26/19 21:55 Results RAPID PLASMA REAGIN,RPR [CHEM] Routine Lab 04/26/19 21:55 Received TYPE AND SCREEN [BBK] Stat Lab 04/26/19 21:55 Results Ampicillin 1 gm Med 04/27/19 02:00 Active Sodium Chloride 0.9% [Normal Saline] 100 ml IV Q4H Lactated Ringers [Ringers, Lactated] 1,000 ml Med 04/26/19 22:00 Active IV ASDIRECTED Nalbuphine [Nubain] Med 04/26/19 21:50 Active 10 mg IVPUSH Q2H PRN Oxytocin/Lactated Ringers [Pitocin in LR 10 Units/1,000 Med 04/26/19 22:00 Active ML] 10 unit in 1,000 ml IV .CONTINUOUS Sodium Chloride 0.9% [Saline Flush] Med 04/26/19 21:50 Active 10 ml FLUSH ASDIRECTED PRN Electronic Heart Tones Ext w TOCO [WOMSER] Oth 04/26/19 21:55 Ordered Routine Electronic Heart Tones Internal [WOMSER] Per Unit Oth 04/26/19 21:55 Ordered Routine Peripheral IV Insertion Adult [OM.PC] Routine Oth 04/26/19 21:55 Ordered Resuscitation Status Routine Resus Stat 04/26/19 21:50 Ordered Medication Orders Ampicillin Sodium 1 gm/ Sodium (Chloride) 100 mls @ 200 mls/hr IV Q4H THEA Lactated Ringer's (Ringers, Lactated) 1,000 mls @ 100 mls/hr IV ASDIRECTED THEA Last Admin: 04/26/19 22:22 Dose: 100 mls/hr Oxytocin/Lactated Ringer's (Pitocin In Lr 10 Units/1,000 Ml) 10 unit in 1,000 mls @ 500 mls/hr IV .CONTINUOUS THEA Last Admin: 04/26/19 22:59 Dose: 500 mls/hr Nalbuphine HCl (Nubain) 10 mg IVPUSH Q2H PRN PRN Reason: Pain Sodium Chloride (Saline Flush) 10 ml FLUSH ASDIRECTED PRN PRN Reason: Keep Vein Open Assessment/Plan Comment:: 1. 40-2/7 week intrauterine , active labor with rapid progression of dilation. Delivered as per above note. 2. Patient plans to breast-feed 3. Group B strep positivepatient received 1 dose of ampicillin prior to delivery 4. Patient desired natural labor Plan: 1. Routine post care 2. Support breast-feeding decision 3. vitamins 4. RPR upon admission
[2019-04-26] MEDS ORDERED: Acetaminophen 325 MG Tab PO PRN (23:41)
[2019-04-26] MEDS ORDERED: Benzocaine/Menthol 20%-0.5% Spray 56 GM Canister TOP PRN (23:41)
--- NOTE | 2019-04-26 23:42 | PCM.SN ---
- Free Text/Narrative Note: Delivery note: Juliet is a 39-year-old 4 now para 4004 white female who is admitted on the evening of 04/26/2019 at 40-2/7 weeks gestational age with an ZOYA of 2018 in active labor. Rapidly went from 4 cm upon admission to complete and delivered within approximately 2 hour time period. History of physical exam is done after the delivery. Patient had a natural labor. This per her design. If she rapidly went through labor alexys approximately every 3 minutes. Artificial rupture membranes resulted in clear amniotic fluid. She pushed 2 contractions and delivered a viable, ramos, male with Apgars of 9 and 9, weight 3020 g (6 pounds 10.5 ounces), a length of 20.0 inches in a occiput anterior position at 2258 hrs. on 04/26/2019. She had a periclitoral laceration which required 2 sutures. The area was anesthetized with lidocaine 1%5 mL total. 3-0 Monocryl was used for the repair. The placenta delivered at 2302 hrs. It delivered in a Waite presentation, appeared intact and complete and was discarded per patient desire. IV Pitocin was started at 500 mL per hour to increase uterine tone and decreased likelihood of uterine bleeding. Estimated blood loss was 100 mL. Condition: Good. Patient plans to breast-feed.
[2019-04-27] MEDS: Ibuprofen 600 MG Tab PO PRN ×4 (00:03→19:21)
[2019-04-27] MEDS: Witch Hazel Medicated Pads 40/Jar TOP PRN (00:04)
[2019-04-27] MEDS ORDERED: Ampicillin 1 GM in Sodium Chloride 0.9% 100 ML IV SCH (02:00)
[2019-04-27] MEDS: Prenatal Multivitamin with Calcium/Folic Acid/Iron Tab PO SCH (10:37)
[2019-04-27] MEDS: Docusate Sodium 100 MG Cap PO PRN (19:21)
[2019-04-28] MEDS: Ibuprofen 600 MG Tab PO PRN ×3 (01:20→15:24)
--- NOTE | 2019-04-28 05:43 | PCM.DCSUM1 ---
Discharge Summary - Hospital Course Free Text/Narrative:: Juliet is a 39-year-old 4 now para 4004 white female who is admitted on the evening of 04/26/2019 at 40-2/7 weeks gestational age with an ZOYA of 2018 in active labor. Rapidly went from 4 cm upon admission to complete and delivered within approximately 2 hour time period. History of physical exam is done after the delivery. Patient had a natural labor. This per her design. If she rapidly went through labor alexys approximately every 3 minutes. Artificial rupture membranes resulted in clear amniotic fluid. She pushed 2 contractions and delivered a viable, ramos, male infant with Apgars of 9 and 9, weight 3020 g (6 pounds 10.5 ounces), a length of 20.0 inches in a occiput anterior position at 2258 hrs. on 04/26/2019. She had a periclitoral laceration which required 2 sutures. The area was anesthetized with lidocaine 1%5 mL total. 3-0 Monocryl was used for the repair. The placenta delivered at 2302 hrs. It delivered in a Waite presentation, appeared intact and complete and was discarded per patient desire. IV Pitocin was started at 500 mL per hour to increase uterine tone and decreased likelihood of uterine bleeding. Estimated blood loss was 100 mL. patient is done well. She is nursing without problems, ambulating well and has minimal lochia. She is voiding without concerns. She is desiring discharge home. Condition: Good. Patient plans to breast-feed. Diagnosis: Stroke: No - Discharge Data Discharge Date: 04/28/19 Discharge Disposition: Home, Self-Care 01 Condition: Good - Referral to Home Health Primary Care Physician: Be Farias MD - Patient Instructions Diet: Regular Diet as Tolerated (Nursing diet with increased calories and calcium as recommended) Activity: As Tolerated (No intercourse or tampons until bleeding resolves) Driving: May Drive Today Showering/Bathing: May Shower (May take a bath) Notify Provider of: Fever, Increased Pain, Swelling and Redness, Nausea and/or Vomiting - Discharge Plan Home Medications: Home Meds Vit No.130/Iron/FA [ Tablet] 1 each PO DAILY 02/01/15 [History] Omeprazole 20 mg PO 04/26/19 [History] Acetaminophen [Tylenol] 650 mg PO Q4H PRN tablet 04/28/19 [Rx] Ibuprofen [Motrin] 600 mg PO Q4H PRN tablet 04/28/19 [Rx] Referrals: Be Farias MD [Primary Care Provider] - (Return to [facility] weeks) - Discharge Summary/Plan Comment DC Time >30 min.: No Discharge Summary/Plan Comment: Discharge instructions: 1. Discharge home 2. Diet, activity and follow-up discussed with patient. Recommend nursing diet with increased calories and calcium. 3. Precautions given concern increased pain, bleeding, temperature, signs/ symptoms of DVT/PE. 4. Medications per home medication was printed, discussed with and given to the patient. 5. Return to clinic-Dr. Farias[facility] in 2 weeks. Diagnosis: Term -delivered Condition: Good - Patient Data Vitals - Most Recent: Last Vital Signs Temp 36.7 C 04/28/19 04:44 Pulse 59 L 04/28/19 04:44 Resp 14 04/28/19 04:44 BP 102/51 L 04/28/19 04:44 Pulse Ox 95 04/28/19 04:44 Weight - Most Recent: 78.199 kg I&O - Last 24 hours: Intake & Output 04/27/19 04/27/19 04/28/19 14:59 22:59 06:59 Intake Total 300 120 Balance 300 120 Lab Results - Last 24 hrs: Laboratory Results - last 24 hr 04/26/19 Range/Units 21:55 RPR Non-reactive (NONREACTIVE) Med Orders - Current: Current Medications Acetaminophen (Tylenol) 650 mg PO Q4H PRN PRN Reason: mild pain or fever Benzocaine/Menthol (Dermoplast Pain Relief Dawn) 0 gm TOP ASDIRECTED PRN PRN Reason: Perineal Comfort Measure Last Admin: 04/27/19 00:03 Dose: 1 applic Docusate Sodium (Colace) 100 mg PO BID PRN PRN Reason: Constipation Last Admin: 04/27/19 19:21 Dose: 100 mg Ibuprofen (Motrin) 600 mg PO Q4H PRN PRN Reason: Mild pain or fever Last Admin: 04/28/19 01:20 Dose: 600 mg Prenat Multivit/[place]/Iron/Folic Ac ( Plus Iron) 1 each PO DAILY [facility] Last Admin: 04/27/19 10:37 Dose: 1 each Kaila Anthony (Tucks) 1 pad TOP ASDIRECTED PRN PRN Reason: Pain Last Admin: 04/27/19 00:04 Dose: 1 applic Discontinued Medications Ampicillin Sodium 2 gm/ Sodium (Chloride) 100 mls @ 200 mls/hr IV ONETIME ONE Stop: 04/26/19 22:29 Last Admin: 04/26/19 22:22 Dose: 200 mls/hr Ampicillin Sodium 1 gm/ Sodium (Chloride) 100 mls @ 200 mls/hr IV Q4H THEA Lactated Ringer's (Ringers, Lactated) 1,000 mls @ 100 mls/hr IV ASDIRECTED THEA Last Admin: 04/26/19 22:22 Dose: 100 mls/hr Oxytocin/Lactated Ringer's (Pitocin In Lr 10 Units/1,000 Ml) 10 unit in 1,000 mls @ 500 mls/hr IV .CONTINUOUS THEA Last Admin: 04/26/19 22:59 Dose: 500 mls/hr Lidocaine HCl (Xylocaine 1%) Confirm Administered Dose 50 ml .ROUTE .STK-MED ONE Stop: 04/26/19 23:05 Last Admin: 04/26/19 23:18 Dose: Not Given Lidocaine HCl (Xylocaine 1%) 10 ml INJECT ONETIME ONE Stop: 04/26/19 23:06 Last Admin: 04/26/19 23:18 Dose: 10 ml Nalbuphine HCl (Nubain) 10 mg IVPUSH Q2H PRN PRN Reason: Pain Sodium Chloride (Saline Flush) 10 ml FLUSH ASDIRECTED PRN PRN Reason: Keep Vein Open
[2019-04-28] MEDS: Prenatal Multivitamin with Calcium/Folic Acid/Iron Tab PO SCH ×2 (07:41→15:25)
[2019-04-28] MEDS: Docusate Sodium 100 MG Cap PO PRN (07:41)
[2019-04-28] MEDS: Witch Hazel Medicated Pads 40/Jar TOP PRN (07:55)
[2019-04-28 15:39] VITALS: BP 95/47; PULSE 70
== END 2019-04-28 16:24 | disposition home or self-care (01) | DRG 560 ==
LOC: JD.OBCHECK 21:22 → JD.OB 21:22 → JD.OBCHECK 21:54 → JD.OB 21:55 → OBSVTOIN 22:58 → JD.OB 22:59
PROVIDERS: ADMIT Obstetrics & Gynecology; ATTEND Obstetrics & Gynecology
PROC: 10E0XZZ Delivery of Products of Conception, External Approach (ICD-10-PCS; principal; 2019-04-26)
PROC: 10907ZC Drainage of Amniotic Fluid, Therapeutic from Products of Conception, Via Natural or Artificial Opening (ICD-10-PCS; 2019-04-26)
PROC: 0UQJXZZ Repair Clitoris, External Approach (ICD-10-PCS; 2019-04-26)
DX: O48.0 Post-term pregnancy (principal); O99.62 Diseases of the digestive system complicating childbirth; O99.824 Streptococcus B carrier state complicating childbirth; O71.89 Other specified obstetric trauma; Z37.0 Single live birth; Z3A.40 40 weeks gestation of pregnancy
CPT/HCPCS: 36415; 59025; 59409; 85025; 85461; 86592; 86850; 86870; 86900; 86901; A9270-GY; J0290; J2001; J2590; J2790; J7030; J7120